=== PATIENT | female | born 1945 | race Caucasian/White ===

== ENCOUNTER 2023-06-01 19:33 | Emergency (ER) | payer MEDICARE ==
[~2023-06-01] VITALS: Ht 162.6 cm; Wt 39.1 kg
[2023-06-01 20:59] VITALS: BP 178/104; PULSE 99; RESP 18; TEMP 97.3; O2SAT 98
== END 2023-06-02 04:05 | disposition left against medical advice (07) ==
LOC: ER 19:35
DX: M54.59 Other low back pain (principal); Z53.21 Procedure and treatment not carried out due to patient leaving prior to being seen by health care provider
CPT/HCPCS: 99281